=== PATIENT | female | born 1965 | race Caucasian/White ===

== ENCOUNTER 2017-02-07 13:57 | Emergency (ER) | payer OTHER ==
[~2017-02-07] VITALS: Ht 157.5 cm; Wt 86.0 kg
[~2017-02-07 13:57] MED LIST: ATEN25TA PO; ATEN50TA PO; CHOL5000 PO; METF500T4 PO; MULT-1018 PO; NORE1TAB22 PO; SIMV10TA4 PO
[2017-02-07 14:44] VITALS: BP 139/95; PULSE 108; RESP 16; O2SAT 96
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
[2017-02-07] MEDS ORDERED: ROB500 PO (16:36)
[2017-02-07 17:17] VITALS: BP 139/95; PULSE 108; RESP 16; O2SAT 96
== END 2017-02-07 16:40 | disposition home or self-care (01) ==
LOC: SED 13:57
DX: S16.1XXA Strain of muscle, fascia and tendon at neck level, initial encounter (principal); S29.019A Strain of muscle and tendon of unspecified wall of thorax, initial encounter; S80.212A Abrasion, left knee, initial encounter; V43.62XA Car passenger injured in collision with other type car in traffic accident, initial encounter; Y93.89 Activity, other specified; Y99.8 Other external cause status; Y92.410 Unspecified street and highway as the place of occurrence of the external cause; G89.29 Other chronic pain; I10 Essential (primary) hypertension; E11.9 Type 2 diabetes mellitus without complications; E78.5 Hyperlipidemia, unspecified; Z85.3 Personal history of malignant neoplasm of breast; Z90.12 Acquired absence of left breast and nipple; Z79.3 Long term (current) use of hormonal contraceptives; Z79.84 Long term (current) use of oral hypoglycemic drugs; Z88.6 Allergy status to analgesic agent; Z88.5 Allergy status to narcotic agent; Z88.8 Allergy status to other drugs, medicaments and biological substances
CPT/HCPCS: 96372; 99284; J1885

== ENCOUNTER 2017-03-18 15:40 | Emergency (ER) | payer OTHER ==
[~2017-03-18] VITALS: Ht 157.5 cm; Wt 87.7 kg
[~2017-03-18 15:40] MED LIST changes: +ROB500 PO
[2017-03-18 15:53] VITALS: BP 139/88; PULSE 105; RESP 16; O2SAT 97
--- NOTE | 2017-03-18 17:24 | ED.REPORT ---
HPI-Extremity Problem Lower Date of Service March 18, 2017 ED Provider: Rafy Staton PA-C Christopher is a 51-year-old female with a history of breast cancer and fibromyalgia presented with a chief complaint of right calf pain. Patient states the pain started as she was leaning into her van to get something when she felt a pop in her right calf and she can no longer bear weight on the leg and states that the pain radiates to the back of her knee and her ankle. Denies chest pain, cough, shortness of breath. Denies history of trauma, recent surgery, immobilization, estrogen, DVT/PE, unilateral leg swelling. Nursing Notes Stated Complaint: HURT MY LEG Chief Complaint: Extremity Trauma Nursing Notes Reviewed: Yes Allergies: Coded Allergies: iodine (Verified Allergy, Severe, WELTS/HIVES CONTRAST DYE, 02/07/17) acetaminophen (Verified Allergy, Mild, RASH, 02/07/17) hydrocodone (Verified Allergy, Mild, RASH, 02/07/17) silver (Verified Allergy, Mild, RASH, 02/07/17) Scheduled Atenolol (Atenolol) 25 Mg Tablet 25 MG PO DAILY Atenolol (Atenolol) 50 Mg Tablet 50 MG PO DAILY Cholecalciferol (Vitamin D3) (Vitamin D3) 5,000 Unit Capsule 5,000 UNIT PO DAILY Metformin (Metformin) 500 Mg Tablet 500 MG PO BID Methocarbamol (Methocarbamol) 500 Mg Tablet 500 MG PO TID Multivitamin (Multi Vitamin Daily) 1 Each Tablet 1 EACH PO DAILY Norethindrone-Ethinyl Estrad (Nortrel) 1 Each Tablet 1 EACH PO DAILY Simvastatin (Simvastatin) 10 Mg Tablet 20 MG PO HS Scheduled PRN Ibuprofen (Ibuprofen) 800 Mg Tablet 800 MG PO QID PRN PRN For Pain General Time Seen by MD: 17:14 Chief Complaint Leg injury left Past Medical History Past Medical History Notes: Breast CA L HER 2 + S/P lumpectomy, LN resection, and radiation. Tennis elbow DMII - Glipizide HTN - Lisinopril HLD - Simvastatin. Past Medical History PVCs - on Atenolol Reports: Diabetes mellitus Past Surgical History Surgery to repair tennis elbow Cervical conization Lumpectomy, LN dissection, Family History Mother- "heart disease with two open heart surgeries." DMII, MGM - lung Cancer. Smoking History Never Smoker Social History Lives by self. Alcohol Use: Denies alcohol use Drug Use: Denies drug use Occupation Seeking disability. Ambulatory Status Independent Review of Systems Review of Systems Note: Negative unless stated otherwise in history of present illness Physical Exam General: Well appearing, well developed, well nourished, no acute distress. Right knee: Normal to inspection, nontender, full range of motion. Right leg: Normal to inspection, tenderness at muscle belly, no cords palpated. Right calf diameter roughly equal to left. Negative pitting edema, redness, swelling, heat. Right ankle/foot: DP and PT pulses 2+. Normal to inspection, nontender. Pain with dorsiflexion. Negative pitting edema, redness, swelling, heat. Head: Atraumatic, normocephalic. Eyes: No scleral icterus or injection. No discharge. Vision grossly intact. ENT: Voice clear, hearing grossly intact. Respiratory: No respiratory distress, no increased work of breathing. Speaks in complete sentences. Skin: Warm and dry. Neurological: Grossly nonfocal. Psychological: alert and oriented. Speech appropriate, linear and logical. Behavior appropriate. Initial Vital Signs Vital Signs (First) Date Time Temp Pulse Resp B/P Pulse Ox O2 Delivery O2 Flow Rate FiO2 03/18/17 15:53 36.8 105 16 139/88 97 Room Air Initial VS: Vital signs abnormal (mild tachycardia) Re-Eval/Medical Decision Med Decision/Clinical Course 1-year-old female with a history of breast cancer for myalgias or presents with chief complaint of right calf pain that began suddenly as she was leaning over to reach into her van. She denies history of DVT. Patient states she felt a pop and can no longer walk on the leg. Physical examination reveals tenderness in the belly of the muscle, pain with ankle dorsiflexion, normal Barr test. Negative tenderness at gastrocnemius insertion or origin. Negative asymmetrical swelling, pitting edema. I discussed this case with Dr. Sumner who met with and examine the patient. We feel this is most likely a gastrocnemius tear and that DVT or fracture is unlikely. Please patient and a long immobilizer boot with crutches. Advised memory care follow-up and over-the -counter analgesia, emergency return precautions. Patient verbalizes understanding of and consent to the plan. Initial mild tachycardia is resolved at discharge. Discharge & Departure Impression: Primary Impression: Gastrocnemius muscle tear Encounter type: initial encounter Laterality: right Qualified Code: S86.811A - Strain of other muscle(s) and tendon(s) at lower leg level, right leg , initial encounter Disposition: Home Discharge Condition All VS Reviewed: Yes Condition: Stable Additional Instructions: Evaluation in the emergency department for right leg pain includes history and physical examination, which suggests this is highly likely to be a tear in your calf muscle. We will give you a cast boot to be worn at all times except when bathing as well as crutches. You can touch down with this foot, but avoid bearing all of your weight on it. Rest the affected limb as much as possible and keep it elevated at above the level of the heart. Ice applied several times over the next 24 hours will help reduce swelling. The pain is best treated with 800 mg of ibuprofen (Advil, Motrin) every 6 hours, 1000 mg of acetaminophen can be taken every 6 hours for pain not controlled by ibuprofen. Follow-up with your primary care provider in about a week to further assess your injury. Return to emergency department for any new or worsening symptoms including increasing pain in the leg, cold/numb foot, chest pain, shortness of breath. Referrals: Alfonso Flores DO (PCP) EDSupervising Provider for APC: Faheem Lubin DO copies to: Alfonso Flores Seth PA-C March 18, 2017 17:24
[2017-03-18 17:57] VITALS: BP 130/91; PULSE 98; RESP 20; O2SAT 100
[2017-03-18] MEDS ORDERED: IBUP800T28 PO (18:13)
== END 2017-03-18 18:21 | disposition home or self-care (01) ==
LOC: SED 15:40
DX: S86.811A Strain of other muscle(s) and tendon(s) at lower leg level, right leg, initial encounter (principal); X50.9XXA Other and unspecified overexertion or strenuous movements or postures, initial encounter; Y93.89 Activity, other specified; Y92.89 Other specified places as the place of occurrence of the external cause; Y99.8 Other external cause status; E11.9 Type 2 diabetes mellitus without complications; Z79.84 Long term (current) use of oral hypoglycemic drugs; Z88.5 Allergy status to narcotic agent; Z88.8 Allergy status to other drugs, medicaments and biological substances